=== PATIENT | male | born 2000 | race Caucasian/White ===

== ENCOUNTER 2019-05-24 13:08 | Emergency (ER) | payer MEDICARE, OTHER ==
[2019-05-24 14:25] LABS: #Basophils 0.1 thou/uL (0.0-0.2); #Eosinphils 0.3 thou/uL (0.0-0.7); #Monocytes 0.7 thou/uL (0.11-0.59); #Neutrophils 3.9 thou/uL (1.40-6.50); %Basophils 1.1 % (0.0-1.0); %Lymphocytes 37.9 % (28.0-48.0); %Monocytes 8.6 % (0.0-4.0); %Neutrophils 48.5 % (31.0-61.0); Hemoglobin 15.1 g/dL (14.0-18.0); Mean Corpuscular HGB CONC 31.1 g/dL (32.0-36.0); Mean Corpuscular Hemoglobin 29.3 pg (25.0-35.0); Mean Corpuscular Volume 94.3 fL (78.0-98.0); Platelet Count 227 thou/uL (130-400); RBC Distribution Width 11.6 % (11.5-14.5); Red Blood Cell (RBC) Count 5.16 mill/uL (4.00-5.20)
[2019-05-24 14:33] LABS: Bilirubin Negative (Negative); Blood, Urine Negative (Negative); Clarity Clear (Clear); Glucose, Urine (Dipstick) Negative (Negative); Leukocyte Negative (Negative); Nitrite Negative (Negative); Protein, Urine (Dipstick) Negative (Neg-Trace); Urobilinogen 0.2 mg/dL (Less than 2)
--- NOTE | 2019-05-24 14:39 | CT ---
EXAM: CT brain without contrast HISTORY: Altered mental status and seizures. History of [employer] shunt. COMPARISON: 05/09/2012 TECHNIQUE: Multiple contiguous axial images were obtained and a CT of the brain without contrast. FINDINGS: A right posterior approach ventriculostomy catheter is seen with its tip near the midline. The lateral ventricles are slitlike. 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 This is unchanged compared to the exam from 2012. No midline shift or downward herniation is seen. 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 There is no evidence of intercranial hemorrhage or extra-axial fluid collection. The calvarium and overlying soft tissues are unremarkable. The visualized paranasal sinuses and masto id air cells are well aerated. IMPRESSION: Stable exam.
[2019-05-24 14:41] LABS: ALT (SGPT) 14 U/L (8-55); AST (SGOT) 9 U/L (5-34); Albumin 4.6 g/dL (3.5-5.0); Alkaline Phosphatase 85 U/L (50-130); Anion Gap 14 mmol/L (10-20); BUN (Urea Nitrogen) 14 mg/dL (8.9-20.6); Bilirubin, Total 0.5 mg/dL (0.2-1.2); Calc. Creatinine Clearance 0 mL/min (70-130); Calcium 9.3 mg/dL (7.8-10.44); Carbon Dioxide 25 mmol/L (22-29); Chloride 106 mmol/L (98-107); Estimated GFR-MDRD Greater than 90; Globulin 2.6 g/dL (2.4-3.5); Glucose 90 mg/dL (70-105); Potassium 4.5 mmol/L (3.5-5.1); Protein, Total 7.2 g/dL (6.0-8.3); Sodium 140 mmol/L (136-145)
== END 2019-05-24 15:21 | disposition home or self-care (01) ==
LOC: MADERS 13:08
DX: G40.909 Epilepsy, unspecified, not intractable, without status epilepticus (principal); G80.9 Cerebral palsy, unspecified; Z79.899 Other long term (current) drug therapy
CPT/HCPCS: 70450; 80053; 81003; 83735; 85025

== ENCOUNTER 2019-08-09 12:49 | Emergency (ER) | payer MEDICARE, OTHER ==
[2019-08-09] MEDS ORDERED: Lidocaine 1% w/Epinephrine 1:100K 20 ML VIAL ONE (13:13)
[2019-08-09] MEDS ORDERED: Adacel (T-DAP) 0.5 ML SYRINGE ONE ×2 (13:34→13:37)
== END 2019-08-09 14:03 | disposition home or self-care (01) ==
LOC: MADERS 12:49
DX: S01.81XA Laceration without foreign body of other part of head, initial encounter (principal); G80.9 Cerebral palsy, unspecified; W22.03XA Walked into furniture, initial encounter
CPT/HCPCS: 12011; 36416; 90471; 90715

== ENCOUNTER 2020-03-29 14:46 | Emergency (ER) | payer MEDICARE, MEDICAID ==
--- NOTE | 2020-03-29 15:47 | CT ---
EXAM: Brain CTWithout contrast: HISTORY: Injury COMPARISON: 05/24/2019 07/10/2010 FINDINGS: Right-sided ventriculostomy tube in place. 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 Prominent stable bilateral dural ossification. 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 No intra or extra-axial hemorrhage. Sinuses and mastoids are clear of acute process. IMPRESSION: No mass or bleed or other acute process. Fairly extensive stable remote findings.
--- NOTE | 2020-03-29 15:57 | CT ---
EXAM: CT cervical spine PROVIDED CLINICAL HISTORY: Injury after a fall. TECHNIQUE: Contiguous axial CT images are obtained through the cervical spine from the skull base to the T3 leve l. Sagittal and coronal reformatted images are provided. COMPARISON: None FINDINGS: A well corticated osseous density is seen just superior to the odontoid and posterior to the anterior arch of the C1 vertebral body which measures 2.1 cm x 1.3 cm. 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 In addition, there is prominence of the tip of the odontoid which is also likely a varia nt. However, the prominence of the tip of the odontoid does result in mild narrowing of the AP dimensions of the central spinal canal at this level. There is also normal variant involving C2-3 lev el with incomplete separation and apparent fusion of the C2 and C3 vertebral bodies including the posterior elements. No fracture or traumatic subluxation is seen involving cervical spine. There is a midline defect in t he posterior arch of C1 which is a developmental defect and also present on a CT head on 05/24/2019. There is right lateral and posterolateral osteophyte formation at the C3-4 level resulting in mild to moderate narrowing of the right neural foramen due to bony encroachment. No prevertebral soft tissue swelling apparent. Visualized lung apices appear clear. Visualized thyroid gland demonstrates a grossly normal nonenhanced CT appearance. IMPRESSION: 1. No evidence for fracture or traumatic subluxation. 2. 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
== END 2020-03-29 16:15 | disposition home or self-care (01) ==
LOC: MADERS 14:46
DX: S16.1XXA Strain of muscle, fascia and tendon at neck level, initial encounter (principal); S00.93XA Contusion of unspecified part of head, initial encounter; W01.0XXA Fall on same level from slipping, tripping and stumbling without subsequent striking against object, initial encounter
CPT/HCPCS: 70450; 72125

== ENCOUNTER 2022-05-16 13:50 | Emergency (ER) | payer OTHER, MEDICAID | END 2022-05-16 15:36 | disposition home or self-care (01) | LOC: MADERS 13:50 | DX: Z59.00 Homelessness unspecified (principal) | CPT/HCPCS: 99282 ==